=== PATIENT | female | born 1990 | race Caucasian/White ===

== ENCOUNTER 2024-07-06 09:14 | Outpatient (CLI) | payer OTHER, SELFPAY ==
[2024-07-08 03:56] LABS: HPV Source Cervix; HPV, High Risk by TMA Not Detected
== END 2024-07-06 09:15 | disposition home or self-care (01) ==
PROVIDERS: PCP Family Medicine; Visit Provider Registered Nurse
DX: Z12.4 Encounter for screening for malignant neoplasm of cervix (principal); Z11.51 Encounter for screening for human papillomavirus (HPV)
CPT/HCPCS: 87624; 87625; 88141; 88142

== ENCOUNTER 2024-07-12 08:10 | Outpatient (CLI) | payer OTHER, SELFPAY | END 2024-07-12 08:11 | disposition home or self-care (01) | LOC: NFLDREF 07-14 01:58 | PROVIDERS: PCP Family Medicine; Referring Provider Family Medicine; Visit Provider Registered Nurse | DX: N97.9 Female infertility, unspecified (principal); Z13.6 Encounter for screening for cardiovascular disorders; Z13.0 Encounter for screening for diseases of the blood and blood-forming organs and certain disorders involving the immune mechanism | CPT/HCPCS: 80061; 82728; 84144; 84443 ==

== ENCOUNTER 2024-07-18 09:30 | Outpatient (CLI) | payer OTHER, SELFPAY | END 2024-07-18 09:31 | disposition home or self-care (01) | LOC: NFLDREF 07-19 21:58 | PROVIDERS: PCP Family Medicine; Referring Provider Family Medicine; Visit Provider Registered Nurse | DX: N97.9 Female infertility, unspecified (principal) | CPT/HCPCS: 82670; 83001 ==

== ENCOUNTER 2024-11-30 10:53 | Outpatient (CLI) | payer OTHER, SELFPAY ==
--- NOTE | 2024-11-30 11:15 | CRLHL7_ITS ---
For Patients: As a result of the Century Cures Act, medical imaging exams and procedure reports are released immediately into your electronic medical record. You may view this report before your referring provider. If you have questions, please contact your health care provider. Indication: Female infertility, unspecified Technique: Hysterosalpingogram performed. Fluoroscopic time 14 seconds. IMPRESSION: No endometrial canal filling defects. Normal patency of the fallopian tubes with spillage of contrast bilaterally. Normal exam. Dictated by Kp Malone MD @ 11/30/2024 4:02:51 PM (Electronically Signed)
--- NOTE | 2024-11-30 12:19 | W.PM.GYNPROC ---
Procedure Note Date of procedure: 11/30/24 Will [facility] bill your pro fee for this procedure?: Yes Pre-op diagnosis: Infertility Procedure: Hysterosalpingogram Anesthesia: none Complications: None Surgeon: Sarai Bruner MD Estimated blood loss (mL): 0 Pathology: none sent Condition: stable Findings: Patent fallopian tubes bilaterally Procedure Description: POSTPROCEDURE DIAGNOSIS: 1. Infertility 2. Patent fallopian tubes bilaterally. NAME OF PROCEDURE: Hysterosalpingogram. ANESTHESIA: None. COMPLICATIONS: None. PROCEDURE: After obtaining written consent, the patient was placed in the dorsal lithotomy position on the x-ray table. UPT negative prior to procedure. An open-sided bivalve speculum was introduced into the vagina and the cervix easily visualized. The cervix and vagina were then prepped with Betadine. A balloon tipped double-lumen catheter was then gently inserted through the cervical opening into the uterine cavity to the level of the fundus. The balloon was insufflated with 3 mL of air. The speculum was removed. The patient was repositioned in the supine position, covered, and the radiologist was called to the room. A hysterosalpingogram was then performed. A total of 10 cc of Optiray 300 water soluble contrast dye was injected through the double-lumen catheter under moderate pressure. There was immediate fill of the uterine cavity to the cornua and fill of both fallopian tubes and free spillage of dye on both sides. The balloon was deflated. The catheter was removed. The patient tolerated the procedure well, with very mild cramping discomfort during the procedure. She was discharged to home in stable condition and to follow up as [facility].
== END 2024-11-30 10:54 | disposition home or self-care (01) ==
LOC: RAD 10:54
PROVIDERS: PCP Family Medicine; Visit Provider Obstetrics & Gynecology
DX: N97.9 Female infertility, unspecified (principal)
CPT/HCPCS: 58340; 74740; A4649; Q9967

== ENCOUNTER 2024-12-30 07:59 | Outpatient (CLI) | payer OTHER, SELFPAY ==
--- NOTE | 2024-12-30 08:15 | CRLHL7_ITS ---
For Patients: As a result of the Century Cures Act, medical imaging exams and procedure reports are released immediately into your electronic medical record. You may view this report before your referring provider. If you have questions, please contact your health care provider. INDICATION: FEMALE INFERTILITY. UNSPECIFIED COMPARISON: None. TECHNIQUE: 2D morrow-scale and color Doppler images were acquired of the pelvis using a transabdominal and transvaginal approach. Transvaginal imaging performed to better visualize the endometrial stripe and ovaries. FINDINGS: Sonographic images demonstrate a normal size and smooth outer contour of the uterus. Uterus measures 9.0 cm in length by 5.9 cm in AP diameter by 4.8 cm in transverse dimension. The myometrium has a heterogeneous echotexture. The endometrial lining appears normal and measures 5 mm in composite thickness. The right ovary measures 3.0 x 2.6 x 3.4 cm in size and the left ovary measures 3.0 x 1.8 x 2.4 cm. The ovaries demonstrate normal arterial and venous blood flow on color Doppler analysis. There are no suspicious fluid collections within the cul-de-sac. IMPRESSION: Mild heterogeneity of the uterine echotexture without fibroid. Normal ovaries and endometrium. Dictated by Kp Malone MD @ 12/30/2024 10:27:40 AM (Electronically Signed)
== END 2024-12-30 08:00 | disposition home or self-care (01) ==
LOC: US 07:59
PROVIDERS: PCP Family Medicine; Visit Provider Registered Nurse
DX: N97.9 Female infertility, unspecified (principal)
CPT/HCPCS: 76830; 76856